=== PATIENT | female | born 1965 | race Caucasian/White ===

== ENCOUNTER → 2016-12-25 | Outpatient (CLI) | payer OTHER ==
--- NOTE | ~2016-12-25 | BD1 ---
[facility] A Service of [facility] & [facility] RADIOLOGY TEXT RESULTS PATIENT: DENISSE NICHOLAS LOCATION: [facility] : 65 UNIT #: [id number] AGE: [address]: Fabian Soliz MD SEX: F ORDER DR: [id number] [address] [address] [id number] O MR#: [id number] Acc #: [id number] NAME: DENISSE NICHOLAS : 1965 SEX: F STUDY DATE/TIME: 12/25/2016 16:12 UNIT: SRA ROOM: STUDY DESCRIPTION: Dexa Bone Dens 1+ Site Attending Physician: Fabian Soliz M.D. Referring Physician: Fabian Soliz M.D. Ordering Physician: Fabian Soliz M.D. Primary Care Physician: Fabian Soliz M.D. MEDICAL IMAGING REPORT This report is preliminary unless electronic signature is present. EXAM DXA scan, 12/25/2016. HISTORY Status post menopause with no hormone replacement therapy. Osteopenia. Fractured elbow June 2016. Smoking history for 15 years. FINDINGS Bone mineral density in the lumbar spine from L1 through L4 is 0.976 g/cm2 which is 1.7 standard deviations below the mean when compared to the young adult reference population which is characteristic of osteopenia. This is 1.8 standard deviations below the mean when compared to the age-matched population. Bone mineral density in the left femoral neck was 0.911 g/cm2 which is 0.9 standard deviations below the mean when compared to the young adult reference population which is within the range of normal. This is 0.5 standard deviations below the mean when compared to the age-matched population. Bone mineral density in the right femoral neck was 0.963 g/cm2 which is 0.5 standard deviations below the mean when compared to the young adult reference population which is within the range of normal. This is 0.1 standard deviations below the mean when compared to the age-matched population. IMPRESSION Bone mineral density in the lumbar spine characteristic of osteopenia and within the hips bilaterally within the range of normal. STAT * RESULT Dictated by... Clarence Trevino M.D. [facility] A Service of [facility] & [facility] RADIOLOGY TEXT RESULTS PATIENT: DENISSE NICHOLAS LOCATION: [facility] : 65 UNIT #: [id number] AGE: [address]: Fabian Soliz MD SEX: F ORDER DR: THIS IS AN ELECTRONICALLY VERIFIED REPORT Clarence Trevino M.D. at 12/26/2016 8:00 AM SAMPSON/rabia TD: 12/25/2016 16:57 JOB #: [id number] MEDICAL IMAGING REPORT Page 1 of 1
== END | disposition home or self-care (01) ==
LOC: SRAD 15:58
DX: Z13.820 Encounter for screening for osteoporosis (principal); Z78.0 Asymptomatic menopausal state
CPT/HCPCS: 77080